=== PATIENT | male | born 1995 | race Hispanic/Latino ===

== ENCOUNTER 2017-06-17 15:04 | Emergency (ER) | payer SELFPAY ==
[~2017-06-17] VITALS: Ht 180.3 cm; Wt 95.3 kg
[2017-06-17] MEDS ORDERED: CYCLOBENZAPRINE HCL 10 MG TAB PO PRN (15:30)
[2017-06-17] MEDS ORDERED: IBUPROFEN 400 MG TAB PO ONE (15:30)
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
== END 2017-06-17 17:27 | disposition home or self-care (01) ==
LOC: ER 15:04
DX: M54.2 Cervicalgia (principal); S16.1XXA Strain of muscle, fascia and tendon at neck level, initial encounter; S40.012A Contusion of left shoulder, initial encounter; S40.011A Contusion of right shoulder, initial encounter; V43.52XA Car driver injured in collision with other type car in traffic accident, initial encounter; Y92.488 Other paved roadways as the place of occurrence of the external cause
CPT/HCPCS: 70450; 72125; 99283

== ENCOUNTER 2017-08-19 09:37 | Emergency (ER) | payer SELFPAY ==
[~2017-08-19] VITALS: Ht 180.3 cm; Wt 96.2 kg
[2017-08-19] MEDS ORDERED: SODIUM CHLORIDE 0.9% 1000ML 1,000 ML IV STA (10:07)
[2017-08-19] MEDS ORDERED: HYDROMORPHONE 1MG/1ML INJ IV STA (10:07)
[2017-08-19] MEDS ORDERED: ONDANSETRON HCL INJ 2 MG/ML VIAL IV STA (10:07)
[2017-08-19 10:13] LABS: BASOPHILS # (AUTO) 0.1 (0.0-0.1); BASOPHILS % 0.3 % (0.0-1.0); EOSINOPHILS % 0.1 % (0.0-6.0); HEMATOCRIT 41.8 % (38.2-49.6); HEMOGLOBIN 14.8 g/dL (14.0-18.0); LYMPHOCYTES # (AUTO) 1.9 (1.0-3.2); LYMPHOCYTES % 11.5 % (18.0-39.1); MEAN CORPUSCULAR HEMOGLOBIN 29.2 pg (28-32); MEAN CORPUSCULAR HGB CONC 35.4 g/dL (31-35); MEAN CORPUSCULAR VOLUME 82.6 fL (81-99); MONOCYTES # (AUTO) 1.2 (0.2-0.8); MONOCYTES % 7.1 % (4.4-11.3); NEUTROPHILS # (AUTO) 13.6 (2.1-6.9); NEUTROPHILS % 80.6 % (38.7-80.0); PLATELET COUNT 266 x10e3/uL (140-360); RED BLOOD COUNT 5.06 x10e6/uL (4.3-5.7); RED CELL DISTRIBUTION WIDTH 11.9 % (11.7-14.4)
[2017-08-19 10:14] LABS: BILIRUBIN,URINE NEGATIVE (NEGATIVE); CLARITY,URINE CLEAR (CLEAR); COLOR,URINE YELLOW (YELLOW); KETONES,URINE 2+ (NEGATIVE); LEUKOCYTE ESTERASE ,URINE NEGATIVE (NEGATIVE); NITRITE,URINE NEGATIVE (NEGATIVE); PROTEIN,URINE DIPSTICK NEGATIVE (NEGATIVE); URINE UROBILINOGEN 0.2 mg/dL (0.2 - 1)
[2017-08-19 10:26] LABS: BLOOD UREA NITROGEN 7 mg/dL (7-26); BUN/CREATININE RATIO 9 (6-25); CALCIUM 9.5 mg/dL (8.4-10.2); CARBON DIOXIDE 24 mmol/L (22-29); CHLORIDE 102 mmol/L (98-107); CREATININE, SERUM 0.76 mg/dL (0.72-1.25); EST GLOMERULAR FILTRATION RATE > 60 ML/MIN (60-); SODIUM 136 mmol/L (136-145)
[2017-08-19 10:32] LABS: GLUCOSE 436 mg/dL (74-118)
[2017-08-19 10:36] LABS: EPITHELIAL CELLS,URINE RARE /LPF
[2017-08-19] MEDS ORDERED: INSULIN LISPRO 100 UNIT/1 ML 3ML VIAL SQ STA (11:24)
--- NOTE | 2017-08-19 12:00 | Diagnostic Imaging Report ---
PROCEDURE:TESTICULAR DOPPLER ULTRASOUND COMPARISON:None. INDICATIONS:right test swelling TECHNIQUE: Foy-scale and color Doppler images of the testicles and scrotal contents were obtained. Duplex imaging with spectral waveform analysis was performed of the testicular arteries and veins. FINDINGS: RIGHT SCROTUM: Testicle: 5.5 x 2.2 x 3.5 cm. Homogeneous in echotexture. Normal arterial and venous spectral Doppler waveforms. No masses. Epididymal head: 1.3 x 0.5 x 1.1 cm. No increased vascularity. No masses. 0.2 x 0.1 x 0.2 cm cyst. Hydrocele: None Varicocele: None LEFT SCROTUM: Testicle: 4.4 x 3 x 2.9 cm Epididymal head: 1 x 1 x 0.6 cm. No increased vascularity. No masses. Hydrocele: None Varicocele: None CONCLUSION: Mild nonspecific relative enlargement of the right testicle without sonographic findings of orchitis or torsion. Dictated by: Jose Wood M.D. on 08/19/2017 at 12:04 Electronically approved by: Jose Wood M.D. on 08/19/2017 at 12:04
--- NOTE | 2017-08-19 12:01 | Diagnostic Imaging Report ---
PROCEDURE:TESTICULAR ULTRASOUND COMPARISON:None. INDICATIONS:rt test swelling TECHNIQUE: Foy-scale and color Doppler images of the testicles and scrotal contents were obtained. Duplex imaging with spectral waveform analysis was performed of the testicular arteries and veins. FINDINGS: Please refer to same day US Testicular Doppler for full report. CONCLUSION: Please refer to same day US Testicular Doppler for full report. Dictated by: Jose Wood M.D. on 08/19/2017 at 12:05 Electronically approved by: Jose Wood M.D. on 08/19/2017 at 12:05
[2017-08-19] MEDS ORDERED: PIPER-TAZ 3.375 GM 50 ML IV STA (13:09)
[2017-08-19] MEDS ORDERED: VANCOMYCIN 1GM/NS 250 ML 250 ML IV STA (13:09)
[2017-08-19] MEDS ORDERED: HYDROMORPHONE 1MG/1ML INJ IV NR (16:00)
[2017-08-19] MEDS ORDERED: ONDANSETRON HCL INJ 2 MG/ML VIAL IV NR (16:00)
[2017-08-19 17:36] VITALS: BP 127/77
== END 2017-08-19 17:45 | disposition short-term general hospital (02) ==
LOC: ER 09:37
DX: N50.811 Right testicular pain (principal); N49.2 Inflammatory disorders of scrotum; E10.65 Type 1 diabetes mellitus with hyperglycemia
CPT/HCPCS: 36415; 76870; 80048; 81001; 82948; 85025; 93976; 99285; J1170; J2405; J2543; J3370; J7030

== ENCOUNTER 2023-09-25 23:28 | Emergency (ER) | payer SELFPAY ==
[~2023-09-25] VITALS: Ht 180.3 cm; Wt 96.2 kg
[2023-09-26] MEDS ORDERED: TRAMADOL HCL 50 MG TAB PO STA (00:39)
[2023-09-26] MEDS ORDERED: ULTRAM 50MG50 MG PO (00:59)
[2023-09-26 01:00] VITALS: PULSE 92; RESP 16; TEMP 97.5; O2SAT 98
== END 2023-09-26 01:04 | disposition home or self-care (01) ==
LOC: ER 23:31
DX: R10.12 Left upper quadrant pain (principal); X50.1XXA Overexertion from prolonged static or awkward postures, initial encounter; Y92.89 Other specified places as the place of occurrence of the external cause; I10 Essential (primary) hypertension; E11.9 Type 2 diabetes mellitus without complications
CPT/HCPCS: 74176; 99283